=== PATIENT | male | born 1940 | race Two or more races ===

== ENCOUNTER 2024-07-24 08:02 | Inpatient (IN) | payer MEDICARE, MEDICAID ==
[~2024-07-24] VITALS: Ht 172.7 cm; Wt 75.0 kg
[2024-07-24 08:08] VITALS: PULSE 89; RESP 18; O2SAT 94
--- NOTE | 2024-07-24 08:16 | ED.PDOC ---
History of Present Illness HPI Comments 84 year old male brought in by EMS with a chief complaint of syncope onset today (07/24/24). Per EMS, patient's son called EMS due to patient experiencing a syncopal episode. Patient went outside this morning to feed animals, began experiencing dizziness, did not want to sit down, fell on soft dirt. Son states the patient was confused shortly after syncopal episode. Patient had a tooth extraction yesterday, is currently on antibiotics has not been able to eat much since then. Upon EMS arrival patient was hypotensive, given fluids and BP is currently 120s. Patient states he has no further complaints. PMHx prostate cancer. Denies chest pain, headache, dizziness, blurry vision, nausea, vomiting, diarrhea, constipation, abdominal pain, shortness of breath, neck pain, back pain. No other symptoms or modifying factors present at this time. Time Seen by MD: 08:06 Reviewed Notes: Medications, Allergies Allergies: Coded Allergies: NO KNOWN ALLERGIES (Unverified , 07/24/24) Information Source: Patient, Emergency Med Personnel Mode of Arrival: EMS Severity: Moderate Timing: Hours Duration: Since onset Prehospital treatment: IVF Past Medical History PAST MEDICAL HISTORY: Cancer (prostate) Surgical History: Denies all surgeries Family History Family History: Reviewed,noncontributory to illness, No family hx of Cancer, No family hx of DM, No family hx of Heart jessica, No family hx of HTN, No family hx ofKidney jessica, No family hx of Liver jessica, No family hx of Lung jessica, No family hx of Stroke Social History Smoker: Non-Smoker Alcohol: Denies ETOH Use Drugs: Denies Drug Use Lives In: Home Constitutional: denies: chills, diaphoresis, fatigue, fever, malaise, sweats, weakness, others EENTM: denies: blurred vision, double vision, ear bleeding, ear discharge, ear drainage, ear pain, ear ringing, eye pain, eye redness, hearing loss, mouth pain, mouth swelling, nasal discharge, nose bleeding, nose congestion, nose pain, photophobia, tearing, throat pain, throat swelling, voice changes, others Respiratory: denies: cough, hemoptysis, orthopnea, SOB at rest, shortness of breath, SOB with excertion, stridor, wheezing, others Cardiovascular: denies: chest pain, dizzy spells, diaphoresis, Dyspnea on exertion, edema, irregular heart beat, left arm pain, lightheadedness, palpitations, PND, syncope, others Gastrointestinal: denies: abdomen distended, abdominal pain, blood streaked bowels, constipated, diarrhea, dysphagia, difficulty swallowing, hematemesis, melena, nausea, poor appetite, poor fluid intake, rectal bleeding, rectal pain, vomiting, others Genitourinary: denies: burning, dysuria, flank pain, frequency, hematuria, incontinence, penile discharge, penile sore, pain, testicle pain, testicle swelling, urgency, others Neurological: reports: others (syncope ); denies: dizziness, fainting, headache, left sided numbness, left sided weakness, numbness, paresthesia, pre- existing deficit, right sided numbness, right sided weakness, seizure, speech problems, tingling, tremors, weakness Musculoskeletal: denies: back pain, gout, joint pain, joint swelling, muscle pain, muscle stiffness, neck pain, others Integumetry: denies: bruises, change in color, change in hair/nails, dryness, laceration, lesions, lumps, rash, wounds, others Allergic/Immunocompromised: denies: Difficulty Healing, Frequent Infections, Hives, Itching, others Hematologic/Lymphatic: denies: anemia, blood clots, easy bleeding, easy bruising, swollen glands, others Endocrine: denies: excessive hunger, excessive sweating, excessive thirst, excessive urination, flushing, intolerance to cold, intolerance to heat, unexplained weight gain, unexplained weight loss, others Psychiatric: denies: anxiety, bipolar disorder, depression, hopeless, panic disorder, schizophrenia, sleepless, suicidal, others All Other Systems: Reviewed and Negative Physical Exam General Appearance: No Apparent Distress, Normal HEENT: Normal ENT Inspection, Pharynx Normal, TMs Normal Neck: Full Range of Motion, Non-Tender, Normal, Normal Inspection Respiratory: Chest Non-Tender, Lungs Clear, No Accessory Muscle Use, No Res piratory Distress, Normal Breath Sounds Cardiovascular: No Edema, No JVD, No Murmur, No Gallop, Normal Peripheral Pulses, Regular Rate/Rhythm Breast Exam: Deferred Gastrointestinal: No Organomegaly, Non Tender, No Pulsatile Mass, Normal Bowel Sounds, Soft Genitalia: Deferred Pelvic: Deferred Rectal: Deferred Extremities: No calf tenderness, Normal capillary refill, Normal inspection, Normal range of motion, Non-tender, No pedal edema Musculoskeletal : Apperance: Normal Neurologic: Alert, chronic disease manager II-XII nml as Tested, No Motor Deficits, Normal Affect, Normal Mood, No Sensory Deficits Cerebellar Function: Normal Reflexes: Normal Skin: Dry, Normal Color, Warm Lymphatic: No Adenopathy Was a procedure done? Was a procedure done?: No Differential Dx Considerations may include: ACS, CVA, electrolyte abnormality, infectious etiology X-Ray, Labs, Meds, VS Vital Signs Date Time Temp Pulse Resp B/P (MAP) Pulse Ox O2 Delivery O2 Flow Rate FiO2 07/24/24 08:39 85 17 96 Room Air 07/24/24 08:38 98.1 85 17 116/68 (84) 96 98.1 07/24/24 08:08 98.6 89 18 123/74 (90) 94 07/24/24 08:08 89 18 94 Room Air* 0 21 07/24/24 08:08 77 Lab Test 07/24/24 10:08 07/24/24 08:34 Range/Units Troponin I High Sensitivity 4 3 L </=54 ng/L White Blood Count 8.1 4.4-10.8 10^3/uL Red Blood Count 4.96 4.5-5.90 10^6/uL Hemoglobin 14.5 13.5-17.5 g/dL Hematocrit 43.8 41.0-53.0 % Mean Corpuscular Volume 88.3 80.0-100.0 fL Mean Corpuscular Hemoglobin 29.2 28.0-32.0 pg Mean Corpuscular Hemoglobin Concent 33.0 32.0-36.0 g/dL Red Cell Distribution Width 14.0 11.8-14.3 % Platelet Count 196 140-450 10^3/uL Mean Platelet Volume 7.0 6.9-10.8 fL Neutrophils (%) (Auto) 79.4 37.0-80.0 % Lymphocytes (%) (Auto) 9.5 L 10.0-50.0 % Monocytes (%) (Auto) 7.8 0.0-12.0 % Eosinophils (%) (Auto) 2.9 0.0-7.0 % Basophils (%) (Auto) 0.4 0.0-2.0 % Neutrophils # (Auto) 6.4 1.6-8.6 10 ^3/uL Lymphocytes # (Auto) 0.8 0.4-5.4 10 ^3/uL Monocytes # (Auto) 0.6 0-1.3 10 ^3/uL Eosinophils # (Auto) 0.2 0-0.8 10 ^3/uL Basophils # (Auto) 0 0-0.2 10 ^3/uL Nucleated Red Blood Cells 0.0 % Urine Color Yellow Yellow Urine Clarity Turbid H Clear Urine pH 7.5 5.0-9.0 Urine Specific [place] 1.020 1.001-1.035 Urine Protein 1+ H Negative Urine Ketones Negative Negative Urine Blood Negative Negative /uL Urine Nitrite Negative Negative Urine Bilirubin Negative Negative Urine Urobilinogen Normal Negative mg/dL Urine Leukocyte Esterase Negative Negative /uL Urine RBC 2 0 - 3 /hpf Urine Microscopic WBC 4 H 0-3 /HPF Urine Squamous Epithelial Cells None seen <5 /hpf Urine Bacteria None seen None Seen /hpf Urine Mucus Few None Seen Urine Glucose Trace Normal mg/dL Sodium Level 136 136-145 mmol/L Potassium Level 3.6 3.5-5.1 mmol/L Chloride Level 106 98-107 mmol/L Carbon Dioxide Level 21 20-31 mmol/L Anion Gap 9 5-15 Blood Urea Nitrogen 12 9-23 mg/dL Creatinine 0.85 0.700-1.30 mg/dL Glomerular Filtration Rate Calc 87 >90 mL/min BUN/Creatinine Ratio 14.1 10.0-20.0 Serum Glucose 134 H 74-106 mg/dL Calcium Level 8.4 L 8.7-10.4 mg/dL [place] [id number] Ph: [phone] DIAGNOSTIC IMAGING Diagnostic Imaging Report : [id number] Signed PATIENT: MICHAEL MANLEY ACCT: [id number] UNIT: [id number] : 1940 LOC: ER ROOM / BED: / AGE / SEX: 84 / M ADM STATUS: REG ER SERVICE 0809 ORDERING PHYSICIAN: ANTONIETA CODY MD PROCEDURE(s): CXRP - CHEST PORTABLE REASON: syncope ORDER NUMBER(s): [id number], ACCESSION NUMBER(s): [id number] EXAM: XY CHEST PORTABLE Indication: syncope Technique: Single frontal view of the chest was obtained Comparison: None FINDINGS: Lines and Tubes: None Lungs: No focal consolidation. Calcified granuloma in the left upper lung. Pleura: No effusion. No pneumothorax. Cardiomediastinal contours: Unremarkable. Metallic density projects adjacent to the aortic arch measuring 1.7 cm. Bones: No acute osseous abnormality. IMPRESSION: No acute cardiopulmonary disease. ATED BY: PHILL ELLIOTT MD DICTATED DATE/TIME: 07/24/24850 SIGNED BY: PHILL ELLIOTT MD SIGNED DATE/TIME: 07/24/24850 CC: [place] [id number] Ph: [phone] DIAGNOSTIC IMAGING Diagnostic Imaging Report : [id number] Signed PATIENT: MICHAEL MANLEY ACCT: [id number] UNIT: [id number] : 1940 LOC: ER ROOM / BED: / AGE / SEX: 84 / M ADM STATUS: REG ER SERVICE 8 ORDERING PHYSICIAN: ANTONIETA CODY MD PROCEDURE(s): HWOCT - HEAD WITHOUT CONTRAST REASON: syncope ORDER NUMBER(s): [id number], ACCESSION NUMBER(s): [id number] EXAM: CT HEAD WITHOUT CONTRAST INDICATION: syncope TECHNIQUE: CT of the head without intravenous contrast. Coronal and sagittal reformatted images are submitted. Radiation Dose : 1. Head: CT Dose: CTDI volume is 56.04 mGy. Dose-length product is 898.43 mGy*cm The dose indicators for CT are the volume Computed Tomography (CT) Dose Index (CTDIvol) and the Dose Length Product (DLP), and are measured in units of mGy and mGy-cm, respectively. These indicators are not patient dose, but values generated from the CT scanner acquisition factors. The report includes radiation exposure data for exposures received during this examination. All CT scans at this medical facility are performed using dose modulation techniques as appropriate to a performed exam including the following: Automated exposure control was utilized; adjustment of the MA and/or KV according to patient size; and use of iterative reconstruction technique. COMPARISON: None FINDINGS: There is no evidence of acute intracranial hemorrhage, extra-axial collection, mass effect, midline shift, herniation or hydrocephalus. The ventricles, sulci and cisterns are age appropriate. The robbins-white differentiation is intact. The visualized paranasal sinuses and mastoid air cells are clear. No depressed calvarial fracture. The surrounding soft tissues are unremarkable. IMPRESSION: 1. No evidence of acute intracranial abnormality. ATED BY: CICI BEDOYA MD DICTATED DATE/TIME: 07/24/2450 SIGNED BY: CICI BEDOYA MD SIGNED DATE/TIME: 07/24/2450 CC: Time of 1ST Reevaluation: 08:36 Reevaluation 1ST: Unchanged Patient Education/Counseling: Diagnosis, Treatment, Prognosis Family Education/Counseling: No Family Present Additional Information The following tests were ordered, and results were reviewed by me: BMP, CBC, TROP -x3, EKG, CT HEAD WITHOUT CONTRAST, XY CHEST Additional Information was gathered from interviewing the following independent historians: EMS I reviewed and agreed with the following test results read by other providers: CT HEAD WITHOUT CONTRAST, XY CHEST I discussed treatment and results with medical personnel and: patient Departure 1 Departure Time of Disposition: 11:08 (Patient presented with syncope today and should be admitted. Data: 1. I ordered and reviewed the result of at least 3 labs including a CBC, BMP, and troponin. 2. I independently interpreted the following tests: EKG which shows a sinus arrhythmia and a chest x-ray which shows benign chest and a CT head which shows benign..Risk:This patient has a high risk of morbidity due to further diagnostic testing or treatment and may suffer from an acute cardiac, neurologic, or infectious disorder. Rationale: Patient should be admitted to the hospital for further management.) Impression: Primary Impression: Syncope and collapse Additional Impression: Generalized weakness Disposition: 09 ADMITTED INPATIENT Admit to: Med Surg Condition: Serious Critical Care Note Critical Care Time?: No Stability Stability form required: No I personally scribed for ANTONIETA CODY MD ([email or web address]) on 07/24/24 at 08:16. Electronically submitted by Ana Cruz ([email or web address]). I personally scribed for ANTONIETA CODY MD ([email or web address]) on 07/24/24 at 08:17. Electronically submitted by Ana Cruz ([email or web address]). I personally scribed for ANTONIETA CODY MD ([email or web address]) on 07/24/24 at 09:17. Electronically submitted by Ana Cruz ([email or web address]). ANTONIETA CODY MD Jul 24, 2024 08:16
[2024-07-24 08:38] VITALS: TEMP 98.1
[2024-07-24 08:48] LABS: Basophils # (auto) 0 10 ^3/uL (0-0.2); Basophils % (auto) 0.4 % (0.0-2.0); Eosinophils # (auto) 0.2 10 ^3/uL (0-0.8); Eosinophils % (auto) 2.9 % (0.0-7.0); Hematocrit 43.8 % (41.0-53.0); Hemoglobin 14.5 g/dL (13.5-17.5); Lymphocytes # (auto) 0.8 10 ^3/uL (0.4-5.4); Lymphocytes % (auto) 9.5 % (10.0-50.0); Mean Corpuscular Hemoglobin 29.2 pg (28.0-32.0); Mean Corpuscular Volume 88.3 fL (80.0-100.0); Monocytes # (auto) 0.6 10 ^3/uL (0-1.3); Monocytes % (auto) 7.8 % (0.0-12.0); Neutrophils # (auto) 6.4 10 ^3/uL (1.6-8.6); Neutrophils % (auto) 79.4 % (37.0-80.0); Platelet Count (auto) 196 10^3/uL (140-450); Red Blood Cells 4.96 10^6/uL (4.5-5.90); White Blood Cell 8.1 10^3/uL (4.4-10.8)
--- NOTE | 2024-07-24 08:51 | DVH ---
EXAM: XY CHEST PORTABLE Indication: syncope Technique: Single frontal view of the chest was obtained Comparison: None FINDINGS: Lines and Tubes: None Lungs: No focal consolidation. Calcified granuloma in the left upper lung. Pleura: No effusion. No pneumothorax. Cardiomediastinal contours: Unremarkable. Metallic density projects adjacent to the aortic arch peter uring 1.7 cm. Bones: No acute osseous abnormality. IMPRESSION: No acute cardiopulmonary disease.
--- NOTE | 2024-07-24 08:52 | DVH ---
EXAM: CT HEAD WITHOUT CONTRAST INDICATION: syncope TECHNIQUE: CT of the head without intravenous contrast. Coronal and sagittal reformatted images are s ubmitted. Radiation Dose : 1. Head: CT Dose: CTDI volume is 56.04 mGy. Dose-length product is 898.43 mGy*cm The dose indicators for CT are the volume Computed Tomography (CT) Dose Index (CTDIvol) and the Dose Length Product (DLP), and are measured in units of mGy and mGy-cm, respectively. These indicators are not patient dose, but values generated from the CT scanner acquisition factors. The report includes radiation exposure data for exposures received during this examination. All CT scans at this medical facility are performed using dose modulation techniques as appropriate to a performed exam including the following: Automated exposure control was utilized; adjustment of the MA and/or KV according to patient size; and use of iterative reconstruction technique. COMPARISON: None FINDINGS: There is no evidence of acute intracranial hemorrhage, extra-axial collection, mass effect, midline s hift, herniation or hydrocephalus. The ventricles, sulci and cisterns are age appropriate. The robbins-white differentiation is intact. The visualized paranasal sinuses and mastoid air cells are clear. No depressed calvarial fracture. The surrounding soft tissues are unremarkable. IMPRESSION: 1. No evidence of acute intracranial abnormality.
[2024-07-24 08:58] LABS: Chloride 106 mmol/L (98-107); Potassium 3.6 mmol/L (3.5-5.1); Sodium 136 mmol/L (136-145)
[2024-07-24 08:59] LABS: Anion Gap 9 (5-15); Carbon Dioxide 21 mmol/L (20-31)
[2024-07-24 09:04] LABS: BUN/Creatinine Ratio 14.1 (10.0-20.0); Blood Urea Nitrogen 12 mg/dL (9-23)
[2024-07-24 09:15] LABS: Calcium 8.4 mg/dL (8.7-10.4); Glucose 134 mg/dL (74-106)
[2024-07-24 09:32] LABS: Urine Bacteria None Seen /hpf (None Seen)
--- NOTE | 2024-07-24 10:20 | ECG ---
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
[2024-07-24 10:25] LABS: Urine Blood Negative /uL (Negative); Urine Clarity Turbid (Clear); Urine Color Yellow (Yellow); Urine Mucus FEW (None Seen); Urine Protein, UAD 1+ (Negative); Urine Squamous Epithelial Cell None Seen /hpf (<5); Urine Urobilinogen Normal (Negative); Urine WBC 4 /HPF (0-3); Urine pH 7.5 (5.0-9.0)
[2024-07-24] MEDS ORDERED: TAMS0.4C39 PO (13:25)
[2024-07-24] MEDS ORDERED: PRE5T PO (13:26)
[2024-07-24] MEDS ORDERED: ATOR40TA52 PO (13:26)
[2024-07-24] MEDS ORDERED: RELU120T PO (13:26)
[2024-07-24] MEDS ORDERED: ABIR250T5 PO (13:26)
[2024-07-24] MEDS ORDERED: AMLO1TAB21 PO (13:26)
[2024-07-24] MEDS ORDERED: ACETAMINOPHEN 325 MG TAB PO PRN (13:30)
[2024-07-24] MEDS ORDERED: DOCUSATE SOD 100 MG CAP PO PRN (13:30)
[2024-07-24] MEDS ORDERED: MORPHINE SULFATE INJ 2 MG/ml SYRG IV PRN (13:30)
[2024-07-24] MEDS ORDERED: ONDANSETRON HCL 4 MG/2 ML VIAL IV PRN (13:30)
[2024-07-24] MEDS ORDERED: HYDROcodone-ACET 5/325MG TAB PO PRN (13:30)
[2024-07-24] MEDS ORDERED: NITROGLYCERIN 0.4 MG SL TAB SL PRN (13:30)
--- NOTE | 2024-07-24 13:42 | DVHHP2 ---
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 The patient lives with his son. The son states that the patient is currently taking PO chemo to treat his cancer. He also had a tooth extracted yesterday that he said was bleeding. He also states that his dad did not eat or drink much yesterday or this morning due to the dental work. Patient got up this morning and went outside to feed his animals. while out there he told his son that he was feeling dizzy. He did not sit or rest at that time. The son states the next thing he heard was his dad hitting the ground. The son states he did not lose consciousness. When he got to him he was speaking, but that it wasn't making sense. Cardiovascular: HTN, hyperipidemia Heme/Onc: Cancer (prostate with mets to bone) Past Surgical History: Hernia Repair Smoke: No ALCOHOL: none Drugs: None Lives: with Family Domestic Violence: Neg Review of Systems Constitutional: No: Fever, Chills, Sweats, Weakness, Malaise, Other Eyes: No: Pain, Vision change, Conjunctivae inflammation, Eyelid inflammation, Other, Redness ENT: No: Ear pain, Ear discharge, Nose pain, Nose discharge, Nose congestion, Mouth pain, Mouth swelling, Throat pain, Throat swelling, Other Respiratory: No: Cough, Dry, Shortness of breath, SOB with excertion, Wheezing, Hemoptysis, Pleuritic Pain, Sputum, Wheezing, Other Cardiovascular: No: Chest Pain, Palpitations, Orthopnea, Paroxysmal Noc. Dyspnea, Edema, Lt Headedness, Other Gastrointestinal: No: Nausea, Vomiting, Abdominal Pain, Diarrhea, Constipation, Melena, Hematochezia, Other Genitourinary: No Dysuria, No Frequency, No Incontinence, No Hematuria, No Retention, No Other Musculoskeletal: No: other, neck pain, shoulder pain, arm pain, back pain, hand pain, leg pain, foot pain Skin: No: Rash, Lesions, Jaundice, Bruising, Other Neurological: Weakness, Change in speech, Other (syncope); No: Numbness, Incoordination, Confusion, Seizures Allergies: Coded Allergies: NO KNOWN ALLERGIES (Unverified , 07/24/24) Exam Vital Signs Vital Signs Date Time Temp Pulse Resp B/P (MAP) Pulse Ox O2 Delivery O2 Flow Rate FiO2 07/24/24 11:53 95 16 99/50 (66) 98 07/24/24 08:39 Room Air 07/24/24 08:38 98.1 98.1 07/24/24 08:08 0 21 General Appearance: Alert, Oriented X3, Cooperative, mild distress HEENT: Atraumatic, PERRLA, Other (dry mucous membr) Respiratory: Clear to auscultation, Normal air movement Cardiovascular: Regular rate, Normal S1, Normal S2, No murmurs Abdominal: Normal bowel sounds, Soft, No tenderness Extremities: No clubbing, No cyanosis, No edema, Normal pulses, No tenderness/swelling Skin: No rashes, No breakdown, No significant lesion Neuro: Normal gait, Normal speech, Strength at 5/5 X4 ext Psych/Mental Status: Mental status NL, Mood NL Labs/Xrays Labs Test 07/24/24 10:08 07/24/24 08:34 Range/Units Troponin I High Sensitivity 4 </=54 ng/L White Blood Count 8.1 4.4-10.8 10^3/uL Red Blood Count 4.96 4.5-5.90 10^6/uL Hemoglobin 14.5 13.5-17.5 g/dL Hematocrit 43.8 41.0-53.0 % Mean Corpuscular Volume 88.3 80.0-100.0 fL Mean Corpuscular Hemoglobin 29.2 28.0-32.0 pg Mean Corpuscular Hemoglobin Concent 33.0 32.0-36.0 g/dL Red Cell Distribution Width 14.0 11.8-14.3 % Platelet Count 196 140-450 10^3/uL Mean Platelet Volume 7.0 6.9-10.8 fL Neutrophils (%) (Auto) 79.4 37.0-80.0 % Lymphocytes (%) (Auto) 9.5 L 10.0-50.0 % Monocytes (%) (Auto) 7.8 0.0-12.0 % Eosinophils (%) (Auto) 2.9 0.0-7.0 % Basophils (%) (Auto) 0.4 0.0-2.0 % Neutrophils # (Auto) 6.4 1.6-8.6 10 ^3/uL Lymphocytes # (Auto) 0.8 0.4-5.4 10 ^3/uL Monocytes # (Auto) 0.6 0-1.3 10 ^3/uL Eosinophils # (Auto) 0.2 0-0.8 10 ^3/uL Basophils # (Auto) 0 0-0.2 10 ^3/uL Nucleated Red Blood Cells 0.0 % Urine Color Yellow Yellow Urine Clarity Turbid H Clear Urine pH 7.5 5.0-9.0 Urine Specific [place] 1.020 1.001-1.035 Urine Protein 1+ H Negative Urine Ketones Negative Negative Urine Blood Negative Negative /uL Urine Nitrite Negative Negative Urine Bilirubin Negative Negative Urine Urobilinogen Normal Negative mg/dL Urine Leukocyte Esterase Negative Negative /uL Urine RBC 2 0 - 3 /hpf Urine Microscopic WBC 4 H 0-3 /HPF Urine Squamous Epithelial Cells None seen <5 /hpf Urine Bacteria None seen None Seen /hpf Urine Mucus Few None Seen Urine Glucose Trace Normal mg/dL Sodium Level 136 136-145 mmol/L Potassium Level 3.6 3.5-5.1 mmol/L Chloride Level 106 98-107 mmol/L Carbon Dioxide Level 21 20-31 mmol/L Anion Gap 9 5-15 Blood Urea Nitrogen 12 9-23 mg/dL Creatinine 0.85 0.700-1.30 mg/dL Glomerular Filtration Rate Calc 87 >90 mL/min BUN/Creatinine Ratio 14.1 10.0-20.0 Serum Glucose 134 H 74-106 mg/dL Calcium Level 8.4 L 8.7-10.4 mg/dL EXAM: XY CHEST PORTABLE FINDINGS: Lines and Tubes: None Lungs: No focal consolidation. Calcified granuloma in the left upper lung. Pleura: No effusion. No pneumothorax. Cardiomediastinal contours: Unremarkable. Metallic density projects adjacent to the aortic arch measuring 1.7 cm. Bones: No acute osseous abnormality. IMPRESSION: No acute cardiopulmonary disease. EXAM: CT HEAD WITHOUT CONTRAST FINDINGS: There is no evidence of acute intracranial hemorrhage, extra-axial collection, mass effect, midline shift, herniation or hydrocephalus. The ventricles, sulci and cisterns are age appropriate. The robbins-white differentiation is intact. The visualized paranasal sinuses and mastoid air cells are clear. No depressed calvarial fracture. The surrounding soft tissues are unremarkable. IMPRESSION: 1. No evidence of acute intracranial abnormality. Assessment/Plan Assessment/Plan Assessment: Syncope and collapse, Dehydration, Hypotension, H/O hypertension, Hyperlipidemia, Plan: Admit to Tele, Consider cardiology consult, Consider neurology consult, IV hydration, ECHO, Continuous telemetry monitoring, Home medications reconciled, home BP medications held due to hypotension, Plan discussed with: Patient, Son My Orders Orders - RAAD VIDES Procedure Category Date Status Time Admit ADMIT 07/24/24 Transmitted 13:19 Code Status CODE 07/24/24 Transmitted 13:19 2 Gm Sodium Diet DIET 07/24/24 Transmitted Lunch Hydrocodone-Acet PHA 07/24/24 Transmitted 5/325mg Tab (Mcgraw 13:30 Ondansetron Hcl PHA 07/24/24 Transmitted (Zofran) 13:30 Docusate Sodium PHA 07/24/24 Transmitted Capsule (Colace 13:30 Complete Blood Count LAB 07/25/24 Verified 04:00 Comprehensive LAB 07/25/24 Verified Metabolic Panel 04:00 Condition: Serious AUGUSTUS 07/24/24 Transmitted 13:19 Acetaminophen Tablet PHA 07/24/24 Transmitted (Tylenol Tablet) 13:30 Nitroglycerin PHA 07/24/24 Transmitted Sublingual (Ntrostat 13:30 Morphine Sulfate PHA 07/24/24 Transmitted Injection 13:30 Stat Ekg For Chest [facility] 07/24/24 Transmitted Pain 13:19 Notify Md Of Changes [facility] 07/24/24 Transmitted From Base 13:19 Import Coordination And Production Head For [facility] 07/24/24 Transmitted 24 Hours 13:19 Emergency Dysrhythmia [facility] 07/24/24 Transmitted Protocol 13:19 Rhythm Strips Once [facility] 07/24/24 Transmitted Every Shift 13:19 Oxygen By Nasal RT 07/24/24 Transmitted Cannula 13:19 NS PHA 07/24/24 Transmitted 13:30 Date of Service: Jul 24, 2024 Billing Provider: RAAD VIDES Common Visit Codes: [id number] INP/OBS CARE (MOD) RAAD VIDES Jul 24, 2024 13:42
[2024-07-24 14:17] VITALS: BP 102/58; PULSE 98; RESP 17; O2SAT 96
[2024-07-24] MEDS: SODIUM CHLORIDE 0.9% 1,000 ML IV ONE (14:23)
[2024-07-24] MEDS ORDERED: ABIRATERONE ACETATE PO SCH (18:00)
[2024-07-24] MEDS ORDERED: ATORVASTATIN 20 MG TAB PO SCH (22:00)
[2024-07-25] MEDS ORDERED: TAMSULOSIN HYDROCHLORIDE 0.4 MG CAP PO SCH (10:00)
[2024-07-25] MEDS ORDERED: RELUGOLIX PO SCH (10:00)
[2024-07-25] MEDS ORDERED: predniSONE 5 MG TAB PO SCH (10:00)
== END 2024-07-24 16:34 | disposition left against medical advice (07) | DRG 316 ==
LOC: ER 08:02 → EDBD 08:02 → OVERFLOW 13:19
PROVIDERS: ADMIT Nurse Practitioner Family; ATTEND Nurse Practitioner Family
DX: I95.9 Hypotension, unspecified (principal); E86.0 Dehydration; I10 Essential (primary) hypertension; E78.5 Hyperlipidemia, unspecified; Z85.46 Personal history of malignant neoplasm of prostate
CPT/HCPCS: 36415; 70450; 71045; 80048; 81001; 84484; 85025; 93005; 96360; G0378